=== PATIENT | female | born 2000 ===

== ENCOUNTER 2019-03-03 15:37 | Emergency (ER) | payer OTHER ==
[~2019-03-03] VITALS: Ht 154.9 cm; Wt 76.7 kg
[2019-03-03 16:40] LABS: CLARITY,URINE SLIGHTLY CLOUDY; COLOR,URINE YELLOW; GLUCOSE, URINE (UA) NEGATIVE (NEGATIVE); KETONES,URINE 4+ (NEGATIVE); LEUKOCYTE ESTERASE ,URINE 2+ (NEGATIVE); NITRITE,URINE NEGATIVE (NEGATIVE); PH,URINE 6 (5-9); PROTEIN,URINE 3+ (NEGATIVE); UROBILINOGEN,URINE 1 MG/DL (NORMAL)
[2019-03-03] MEDS ORDERED: HYOSCYAMINE 0.125 MG (LEVSIN) TAB PO ONE (16:45)
[2019-03-03] MEDS ORDERED: ONDANSETRON 4 MG (ZOFRAN) ORAL DISSOLVE TAB SL ONE (16:45)
[2019-03-03 16:52] LABS: BACTERIA,URINE FEW /HPF; BILIRUBIN,URINE 2+ (NEGATIVE)
[2019-03-03] MEDS ORDERED: ONDA4TAB11 SL (17:43)
[2019-03-03] MEDS ORDERED: CEPH-507 PO (17:43)
[2019-03-03] MEDS ORDERED: HYOS0.1283 SL (17:43)
--- NOTE | 2019-03-03 17:44 | ED Abdominal Pain ---
General Chief Complaint: Abdominal/GI Problems Stated Complaint: STOMACH PAIN Nursing Triage Note: PATIENT STATES THAT SHE HAS HAD STOMACH PAIN SINCE THURSDAY. SHE STATES SHE HAS NAUSEA AND DIARRHEA BUT NOT VOMITING. SHE HAS TAKEN OTC MEDS WITH NO IMPROVEMENT. Source of Information: Patient Exam Limitations: No Limitations History of Present Illness Date Seen by Provider: Mar 03, 2019 Time Seen by Provider: 16:08 Initial Comments This 18-year-old young lady presents to the emergency room with generalized abdominal pain that is migratory and intermittent for the past 3 days. She was nauseated yesterday and that nausea has diminished today. She has had some watery diarrhea and low volumes. Pain is sharp and worse with movements but nonfocal in nature. Her last visual period was about 10 days ago. She took some type of [id number] pain medication and Marcy-[place] yesterday without much benefit. She denies any fever. Allergies and Home Medications Allergies Coded Allergies: No Known Drug Allergies (Unverified , 03/03/19) Home Medications Cephalexin 500 Mg Capsule, 500 MG PO TID Prescribed by: GILLES LOU on 03/03/191742 Hyoscyamine Sulfate 0.125 Mg Tab.subl, 0.125 MG SL Q4H PRN for CRAMPS Prescribed by: GILLES LOU on 03/03/191742 Ondansetron 4 Mg Tab.rapdis, 4 MG SL Q4H PRN for NAUSEA/VOMITING Prescribed by: GILLES LOU on 03/03/191742 Patient Home Medication List Home Medication List Reviewed: Yes Review of Systems Review of Systems Constitutional: no symptoms reported EENTM: No Symptoms Reported Respiratory: No Symptoms Reported Cardiovascular: No Symptoms Reported Gastrointestinal: See HPI Genitourinary: No Symptoms Reported Musculoskeletal: no symptoms reported Skin: no symptoms reported Psychiatric/Neurological: No Symptoms Reported Endocrine: No Symptoms Reported Hematologic/Lymphatic: No Symptoms Reported Past Mrypdnz-Hlfsjy-Dktqvm Hx Past Med/Social Hx: Reviewed and Corrections made Patient Social History Recent Foreign Travel: No Contact w/Someone Who Travel: No Recent Infectious Disease Expo: No Recent Hopitalizations: No Ebola Symptoms: Denies Symptoms Listed Past Medical History Surgeries: No Respiratory: No Cardiac: No Neurological: No Last Menstrual Period: Feb 21, 2019 Reproductive Disorders: No Genitourinary: No Gastrointestinal: No Musculoskeletal: No Endocrine: No HEENT: No Cancer: No Psychosocial: No Integumentary: No Blood Disorders: No Physical Exam Vital Signs Vital Signs - First Documented 03/03/19 03/03/19 15:49 17:52 Temp 98.2 Pulse 76 Resp 16 B/P (MAP) 130/80 Pulse Ox 98 Capillary Refill : Height/Weight/BMI Height: 5'1.00" Weight: 169lbs. 0oz. 76.453461yc; 28.12 BMI Method:Actual General Appearance: WD/WN, no apparent distress HEENT: PERRL/EOMI, normal ENT inspection, pharynx normal Neck: normal inspection Respiratory: lungs clear, normal breath sounds, no respiratory distress, no accessory muscle use Cardiovascular: regular rate, rhythm, no edema, no murmur Gastrointestinal: normal bowel sounds, soft, tenderness (Minimal generalized tenderness) Extremities: normal inspection, no pedal edema Neurologic/Psychiatric: ambulatory care II-XII nml as tested, no motor/sensory deficits, alert, normal mood/affect, oriented x 3 Skin: normal color Progress/Results/Core Measures Results/Orders Lab Results Laboratory Tests Test 03/03/19 16:25 Range/Units Urine Color YELLOW Urine Clarity SLIGHTLY CLOUDY Urine pH 6 5-9 Urine Specific [place] 1.020 1.016-1.022 Urine Protein 3+ H NEGATIVE Urine Glucose (UA) NEGATIVE NEGATIVE Urine Ketones 4+ H NEGATIVE Urine Nitrite NEGATIVE NEGATIVE Urine Bilirubin 2+ H NEGATIVE Urine Urobilinogen 1 NORMAL MG/DL Urine Leukocyte Esterase 2+ H NEGATIVE Urine RBC (Auto) 4+ H NEGATIVE Urine RBC NONE /HPF Urine WBC 10-25 H /HPF Urine Squamous Epithelial Cells 5-10 /HPF Urine Crystals NONE /LPF Urine Bacteria FEW H /HPF Urine Casts NONE /LPF Urine Mucus MODERATE H /LPF Urine Culture Indicated YES My Orders Orders - GILLES ARAIZA MD Hyoscyamine Sl Tablet (Levsin Sl Tablet) (03/03/19 16:45) Ondansetron Oral Dissolve Tab (Zofran (03/03/19 16:45) Ua Culture If Indicated (03/03/19 16:34) Urine Culture (03/03/19 16:25) Medications Given in ED Current Medications Medications Dose Ordered Sig/Jacqueline Route Start Time Stop Time Status Last Admin Dose Admin Hyoscyamine Sulfate 0.25 mg ONCE ONCE PO 03/03/19 16:45 03/03/19 16:46 DC 03/03/19 16:41 0.25 MG Ondansetron HCl 4 mg ONCE ONCE SL 03/03/19 16:45 03/03/19 16:46 DC 03/03/19 16:41 4 MG Vital Signs/I&O 03/03/19 03/03/19 15:49 17:52 Temp 98.2 Pulse 76 71 Resp 16 16 B/P (MAP) 130/80 Pulse Ox 98 Progress Progress Note : Progress Note Patient was given Levsin and Zofran with some improvement. UA was suggestive of urinary tract infection. There were also significant ketones in her urine suggesting hypovolemia. Aggressive oral hydration was recommended. Antibiotics were prescribed for the UTI. With normal vital signs and an unimpressive exam, no further workup was pursued. Departure Impression Primary Impression: Generalized abdominal pain Additional Impressions: Acute diarrhea Nausea Urinary tract infection Qualified Codes: N39.0 - Urinary tract infection, site not specified Disposition: 01 HOME, SELF-CARE Condition: Improved Departure-Patient Inst. Decision time for Depature: 17:41 Referrals: [facility] (PCP/Family) Primary Care Physician Patient Instructions: Urinary Tract Infections in Adults Add. Discharge Instructions: Push clear liquids tonight. Stick with a clear liquid diet until tomorrow. If you're feeling better tomorrow morning, gradually advance your diet with small quantities of bland food as tolerated. For bowel cramping and diarrhea you may use Levsin (hyoscyamine) as prescribed. For nausea and vomiting you may use Zofran (ondansetron) as prescribed. Avoid dairy products for at least 48 hours after symptoms improved. For pain you may also take Tylenol (acetaminophen) up to 1000 mg every 6 hours as needed. Complete your antibiotics as prescribed. Follow-up with your primary care provider next week to review urine culture results and for a checkup. Return to care if you worsening symptoms, especially if you develop fevers over 100. All discharge instructions reviewed with patient and/or family. Voiced understanding. Scripts Ondansetron (Ondansetron Odt) 4 Mg Tab.rapdis 4 MG SL Q4H PRN for NAUSEA/VOMITING, #10 TAB Prov: GILLES ARAIZA MD 03/03/19 Cephalexin (Keflex) 500 Mg Capsule 500 MG PO TID, #20 CAP Prov: GILLES ARAIZA MD 03/03/19 Hyoscyamine Sulfate (Levsin-Sl) 0.125 Mg Tab.subl 0.125 MG SL Q4H PRN for CRAMPS, #10 TAB 0 Refills Prov: GILLES ARAIZA MD 03/03/19 Work/School Note: Work Release Form Date Seen in the Emergency Department: Mar 03, 2019 Return to Work: Mar 04, 2019 Restrictions: No Restrictions GILLES ARAIZA MD Mar 03, 2019 17:44
== END 2019-03-03 17:57 | disposition home or self-care (01) ==
LOC: EDUNIT# 15:37 → ER 15:39
DX: N39.0 Urinary tract infection, site not specified (principal); R19.7 Diarrhea, unspecified; R11.0 Nausea
CPT/HCPCS: 81000; 87088; 99283